=== PATIENT | female | born 1940 | race Caucasian/White ===

== ENCOUNTER → 2016-08-05 | Outpatient (CLI) | payer OTHER ==
--- NOTE | ~2016-08-05 | 24HR ---
[facility] [place] [place] [address] 24 HR ELECTROCARDIOGRAM REPORT Name: ZION HIGGINBOTHAM Room #: REG CL .RSkyler#: [id number] Admission: 08/05/16 Attend Phys: Goyo Donnelly MD Discharge: Date of : 38 Date of Service: 08/05/16 1114 Report #: [id number] THIS REPORT FOR: //name// [facility] Test Date: 2016-08-05 Test Time: 11:14:00 Pat Name: ZION HIGGINBOTHAM Department: Room: Gender: Electroplating Technician: : 1940 Requested By: Goyo Donnelly Order Number: [id number] Reading MD: Tani Mcdonald Interpretive Statements 1. Study duration 24 hours and technical quality good. 2. predominant rhythm is sinus with an average heart rate of 76bpm, range 59-121bpm. Longest RR interval 1.5sec. 3. Rare atrial premature complexes. No atrial fibrillation, atrial flutter, or SVT. No heart block. 4. Moderately frequently isolated premature ventricular complexes, occasional ventricular bigeminy (4.5% of total QRS complexes. Occasional ventricular couplets and ventricular triplets. No sustained episodes of ventricular tachycardia. 5. No symptoms reported Electronically Signed On 08-08-2016 11:27:10 CDT by Tani Mcdonald [email or web address] <ELECTRONICALLY SIGNED> By: Tani Mcdonald MD, [facility] 08/08/16 1127 1114 1114 Tani Mcdonald MD, [facility] /EPI
== END ==
LOC: CV 10:39
DX: I49.3 Ventricular premature depolarization (principal)